=== PATIENT | female | born 1995 | race African-American/Black ===

== ENCOUNTER 2018-04-15 09:24 | Emergency (ER) | payer OTHER ==
[2018-04-15 09:30] VITALS: BP 138/81
[2018-04-15] MEDS ORDERED: IBUPROFEN 800 MG TABLET PO ONE (10:21)
--- NOTE | 2018-04-15 13:41 | ER Document Report ---
HPI - HPI Patient complains to provider of: Concern about breast abscess Onset: Other - 3 days Onset/Duration: Worse Quality of pain: Achy Pain Level: 3 Context: Patient presents complaining of right breast tenderness with erythema. Patient does report a previous history of abscess to this breast that required surgery in 2017. Patient denies any history of MRSA. Patient denies any personal or family history of breast cancer. Associated Symptoms: Other - Right breast tenderness. denies: Fever Exacerbated by: Denies Relieved by: Denies Similar symptoms previously: Yes Recently seen / treated by doctor: No - ROS ROS below otherwise negative: Yes Systems Reviewed and Negative: Yes All other systems reviewed and negative - CONSTITUTIONAL Constitutional: DENIES: Fever, Chills - GASTROINTESTINAL Gastrointestinal: DENIES: Nausea - REPRODUCTIVE Reproductive: DENIES: : - DERM Skin Color: Erythema Past Medical History - General Information source: Patient - Social History Smoking Status: Current Some Day Smoker Chew tobacco use (# tins/day): No Smoking Education Provided: Yes Frequency of alcohol use: None Drug Abuse: None Occupation: Retail Family History: Reviewed & Not Pertinent Patient has suicidal ideation: No Patient has homicidal ideation: No Pulmonary Medical History: Denies: Hx Asthma Neurological Medical History: Reports: Hx Migraine Endocrine Medical History: Denies: Hx Diabetes Mellitus Type 2 Renal/ Medical History: Denies: Hx Peritoneal Dialysis GI Medical History: Denies: Hx Gastroesophageal Reflux Disease Musculoskeletal Medical History: Reports Hx Arthritis Skin Medical History: Reports Hx Cellulitis Past Surgical History: Reports: Other - Breast abscess surgery - Immunizations Immunizations up to date: Yes Hx Diphtheria, Pertussis, Tetanus Vaccination: Yes Vertical Provider Document - CONSTITUTIONAL Agree With Documented VS: Yes Exam Limitations: No Limitations General Appearance: WD/WN, No Apparent Distress - INFECTION CONTROL TRAVEL OUTSIDE OF THE [place] IN LAST 30 DAYS: No - HEENT HEENT: Atraumatic, Normocephalic - NECK Neck: Normal Inspection, Supple - RESPIRATORY Respiratory: Breath Sounds Normal, No Respiratory Distress - CARDIOVASCULAR Cardiovascular: Regular Rate, Regular Rhythm, No Murmur - BACK Back: Normal Inspection - MUSCULOSKELETAL/EXTREMETIES Musculoskeletal/Extremeties: BASHIR VEGA - NEURO Level of Consciousness: Awake, Alert, Appropriate Motor/Sensory: No Motor Deficit - DERM Integumentary: Warm, Dry Notes: Erythema noted to the right breast at the 4 o'clock position. Patient exquisitely tender with palpation Course - Re-evaluation Re-evalutation: 04/15/18 13:40 Dr. Stock called with verbal results of ultrasound demonstrating a 4 x 3 x 2 cm abscess to the right breast. Consulted with Dr. Sandhu who agrees to examine patient. 04/15/18 14:03 Dr. Sandhu evaluated patient and advises placing her on clindamycin. Recommends having patient return tomorrow to be reevaluated by a surgeon. - Vital Signs Vital signs: Temp Pulse Resp BP Pulse Ox 98.9 F 109 H 18 138/81 H 98 04/15/18 09:28 04/15/18 09:28 04/15/18 09:28 04/15/18 09:28 04/15/18 09:28 - Diagnostic Test Radiology reviewed: Reports reviewed Discharge - Discharge Clinical Impression: Abscess of right breast Condition: Stable Disposition: HOME, SELF-CARE Instructions: Abscess ([facility]), Clindamycin ([facility]), Oral Narcotic Medication ([facility]) Additional Instructions: Return immediately for any new or worsening symptoms Followup with your primary care provider, call tomorrow to make a followup appointment Return tomorrow for a reevaluation by the surgeon. Do not eat anything after midnight and prior to arrival tomorrow. Prescriptions: Clindamycin HCl [Cleocin Hcl] 300 mg PO QID #28 capsule Oxycodone HCl/Acetaminophen [Percocet 5-325 mg Tablet] 1 tab PO ASDIR PRN #15 tablet PRN Reason: Forms: Smoking Cessation Education, Return to Work Referrals: KAILASH SANDHU MD [[facility]] - Follow up as needed PER OLIVARES MD [ACTIVE STAFF] - Follow up tomorrow
--- NOTE | 2018-04-15 13:48 | RADIOLOGY REPORT (SQ) ---
EXAM DESCRIPTION: U/S BREAST UNILATERAL LIMITED COMPLETED DATE/TIME: 04/15/2018 12:38 pm REASON FOR STUDY: r breast, ?abscess COMPARISON: None TECHNIQUE: Static and Realtime grayscale interrogation of the right breast in the area of clinical c oncern, lower outer quadrant. Selected color doppler/spectral images saved to PACS. LIMITATIONS: None. FINDINGS: About 4 cm from the nipple, right breast lower outer quadrant at the 4 o'clock position, a subcutaneous abscess is present, just deep to the skin. This measures 4.6 x 2.2 x 3.6 cm in size. This report was discussed with Maryuri Candelario in the emergency room IMPRESSION: Right breast lower outer quadrant abscess just deep to the skin surface, 4.6 x 2.2 x 3. 6 cm size. This is at the 4 o'clock position about 4 cm from the nipple. BIRAD: 1 Negative. RECOMMENDATION: RECOMMENDED FOLLOW-UP: Follow-up as clinically indicated. COMMENT: The [employer] ([employer]) has developed recommendations for screening MRI of the breasts in certain patient populations, to be used in conjunction with mammography. Breast MRI s urveillance may be appropriate for women with more than 20% lifetime risk of developing breast cancer as determined by genetic testing, significant family history of the disease, or history of mantle r adiation for Hodgkins Disease. ACR Practice Guidelines 2008. TECHNICAL DOCUMENTATION: FINDING NUMBER: (1) ASSESSMENT: (1) JOB ID: [id number] [employer]- All Rights Reserved Reading location - IP/workstation name: [email or web address]
[2018-04-15] MEDS ORDERED: CLINDAMYCIN HCL 150 MG CAPSULE PO ONE (14:02)
--- NOTE | 2018-04-15 17:21 | CONSULTATION REPORT E ---
Consultation Report NAME: SERVANDO DSOUZA : 1995 AGE: 22Y DATE: 04/15/2018 TO: KAILASH SANDHU M.D. FROM: Arturo SARGENT, Requesting Physician CHIEF COMPLAINT: Right breast pains. HISTORY OF PRESENT ILLNESS: This 22-year-old female complained of pains along the right breast about 3 days ago. This got worse last night and more swollen and erythematous. She had a history of previous I and D of the right breast on the same site a year ago. PAST MEDICAL HISTORY: History of I and D on the right breast, June 27, 2017, by Dr. Hewitt. REVIEW OF SYSTEMS: As in HPI. No other complaints other than the right breast pains. No headaches. No cough, chest pains, abdominal pains, or leg pains. No fever or chills. No constipation or diarrhea. FAMILY HISTORY: Mother has diabetes. SOCIAL HISTORY: The patient does not smoke or drink. PHYSICAL EXAMINATION: GENERAL: Well-developed, well-nourished, 32-year-old -[place] female, alert and oriented, complaining of pain along the right breast. HEENT: Neck is supple. No thyromegaly. LUNGS: Clear. HEART: Regular sinus rhythm. BREASTS: The right breast has some redness just above the area of I and D in the right lower inner quadrant area. There is induration roughly about 4 cm x 3 cm that is erythematous and tender. ABDOMEN: Soft, nontender. EXTREMITIES: No edema. IMPRESSION: Right breast recurrent abscess. PLAN: The patient refused to be admitted to be placed on IV antibiotics. The abscess area is still quite firm and without any fluctuation, and it would not be appropriate to have an I and D at this time. At any rate, the patient decided to go home with her sister. I told her I will give her p.o. antibiotics and to come back tomorrow morning and not eat anything from midnight tonight. This will be re-evaluated by the surgeon metal extrusion supervisor, Dr. Rosario. DICTATING PHYSICIAN: KAILASH SANDHU M.D. [id number] PHY#: [id number] ID: [id number] JOB#: [id number] ACCT: [id number] cc:KAILASH SANDHU M.D. > SUNIL
== END 2018-04-15 14:43 | disposition home or self-care (01) ==
LOC: ER 09:24
DX: N61.1 Abscess of the breast and nipple (principal); F17.200 Nicotine dependence, unspecified, uncomplicated; Z98.890 Other specified postprocedural states
CPT/HCPCS: 76642; 99284

== ENCOUNTER 2018-04-16 07:55 | Emergency (ER) | payer OTHER ==
[2018-04-16 08:02] VITALS: BP 134/76
--- NOTE | 2018-04-16 08:15 | ER Document Report ---
HPI - HPI Patient complains to provider of: Breast abscess Onset: Other - 4 days Onset/Duration: Persistent Quality of pain: Achy Pain Level: 4 Context: Patient presents for recheck of breast abscess to her right breast. Patient was evaluated here yesterday and advised to return today after remaining n.p.o. after midnight. Patient denies any fever. Patient does report taking her antibiotics as prescribed yesterday. Associated Symptoms: Other - Right breast abscess. denies: Fever Exacerbated by: Denies Relieved by: Denies Similar symptoms previously: Yes Recently seen / treated by doctor: Yes - ROS ROS below otherwise negative: Yes Systems Reviewed and Negative: Yes All other systems reviewed and negative - CONSTITUTIONAL Constitutional: DENIES: Fever - REPRODUCTIVE Reproductive: DENIES: : - DERM Skin Color: Erythema Past Medical History - General Information source: Patient - Social History Smoking Status: Current Every Day Smoker Smoking Education Provided: Yes Frequency of alcohol use: None Drug Abuse: None Occupation: Retail Family History: Reviewed & Not Pertinent Pulmonary Medical History: Denies: Hx Asthma Neurological Medical History: Reports: Hx Migraine Endocrine Medical History: Denies: Hx Diabetes Mellitus Type 2 Renal/ Medical History: Denies: Hx Peritoneal Dialysis GI Medical History: Denies: Hx Gastroesophageal Reflux Disease Musculoskeletal Medical History: Reports Hx Arthritis Skin Medical History: Reports Hx Cellulitis Past Surgical History: Reports: Other - Breast abscess surgery - Immunizations Immunizations up to date: Yes Hx Diphtheria, Pertussis, Tetanus Vaccination: Yes Vertical Provider Document - CONSTITUTIONAL Agree With Documented VS: Yes Exam Limitations: No Limitations General Appearance: WD/WN, No Apparent Distress - INFECTION CONTROL TRAVEL OUTSIDE OF THE [place] IN LAST 30 DAYS: No - HEENT HEENT: Atraumatic, Normocephalic - NECK Neck: Normal Inspection, Supple - RESPIRATORY Respiratory: Breath Sounds Normal, No Respiratory Distress - CARDIOVASCULAR Cardiovascular: Regular Rate, Regular Rhythm - BACK Back: Normal Inspection - MUSCULOSKELETAL/EXTREMETIES Musculoskeletal/Extremeties: MAEW - NEURO Level of Consciousness: Awake, Alert, Appropriate Motor/Sensory: No Motor Deficit - DERM Integumentary: Warm, Dry, Abscess - Right breast abscess to the 4 o'clock position. Area of erythema and induration seems to have expanded since her visit yesterday. Course - Re-evaluation Re-evalutation: 04/16/18 08:[address] Rosario who agrees to evaluate patient. 04/16/18 08:24 Dr. Rosario to bedside for examination 04/16/18 09:00 I&D to be performed per surgeon. Recommends outpatient follow-up with his office on Wednesday for recheck - Vital Signs Vital signs: Temp Pulse Resp BP Pulse Ox 98.9 F 95 16 134/76 H 100 04/16/18 08:01 04/16/18 08:01 04/16/18 08:01 04/16/18 08:01 04/16/18 08:01 Discharge - Discharge Clinical Impression: Abscess of right breast Condition: Good Disposition: HOME, SELF-CARE Instructions: Abscess ([facility]), Post Incision and Drainage Additional Instructions: Return immediately for any new or worsening symptoms Followup with Dr Rosario for a recheck in the office on Wednesday, call for an appointment time Forms: Return to Work Referrals: PER ROSARIO MD [ACTIVE STAFF] - 04/18/18
[2018-04-16] MEDS ORDERED: LIDOCAINE 1%/EPINEPHRINE INJ 20 ML VIAL INJ ONE (08:39)
--- NOTE | 2018-04-16 10:55 | Operative Report ---
Nonrecallable Operative Report DATE OF SURGERY: 04/16/18 PREOPERATIVE DIAGNOSIS: 4 cm right breast abscess. POSTOPERATIVE DIAGNOSIS: Same as above OPERATION: Incision and drainage of a right breast abscess. SURGEON: PER OLIVARES TISSUE REMOVED OR ALTERED: Wound culture COMPLICATIONS: None apparent ESTIMATED BLOOD LOSS: Minimal PROCEDURE: Drains/implants: 4 x 4 gauze packing. Procedure in detail: After informed consent was obtained, the patient was laid in the semi-upright position in the emergency department. The area of the right medial breast was prepped and draped in a normal sterile fashion. 1% lidocaine was infiltrated around the area of the abscess. The abscess was then incised with a 15 blade scalpel. A large amount of purulent material was expressed. The wound was irrigated and cleaned. Wound cultures were taken. Wound was then packed with a 4 x 4 gauze, a dressing was fashioned, and the procedure was concluded. All sponge, instrument, and needle counts were correct. Condition: Stable. Recommendation: Continue antibiotics until the course is complete. Follow-up in my office this coming Wednesday.
== END 2018-04-16 09:31 | disposition home or self-care (01) ==
LOC: ER 07:55
DX: N61.1 Abscess of the breast and nipple (principal); F17.200 Nicotine dependence, unspecified, uncomplicated
CPT/HCPCS: 87070; 87205; 87075; 87077; 87186; 10060; J3490

== ENCOUNTER 2018-06-19 08:14 | Emergency (ER) | payer OTHER ==
[2018-06-19] MEDS ORDERED: LIDOCAINE 1% INJ-PF (10 MG/ML) 30 ML SDV INJ ONE (08:36)
--- NOTE | 2018-06-19 08:39 | ER Document Report ---
HPI - HPI Pain Level: 4 Notes: Patient is a 23-year-old female with a history of abscesses requiring incision and drainage who presents to the ED complaining of new onset abscess to the right inferior breast area which she has had cut twice before. Patient states that she has associated pain and swelling in that area. Denies any drug allergies. She has not noticed any red streaks or purulent discharge. Denies any history of MRSA or IV drug use. Denies any headache, fever, URI, sore throat, chest pain, palpitations, syncope, cough, shortness of breath, wheeze, dyspnea, abdominal pain, nausea/vomiting/diarrhea, urinary retention, dysuria, hematuria. - ROS Systems Reviewed and Negative: Yes All other systems reviewed and negative - REPRODUCTIVE Reproductive: DENIES: : Past Medical History - Social History Smoking Status: Unknown if Ever Smoked Family History: Reviewed & Not Pertinent Patient has suicidal ideation: No Patient has homicidal ideation: No Pulmonary Medical History: Denies: Hx Asthma Neurological Medical History: Reports: Hx Migraine Endocrine Medical History: Denies: Hx Diabetes Mellitus Type 2 Renal/ Medical History: Denies: Hx Peritoneal Dialysis GI Medical History: Denies: Hx Gastroesophageal Reflux Disease Musculoskeletal Medical History: Reports Hx Arthritis Skin Medical History: Reports Hx Cellulitis Past Surgical History: Reports: Hx Breast Surgery - RIGHT BREAST ABSCESS, Other - Breast abscess surgery - Immunizations Immunizations up to date: Yes Hx Diphtheria, Pertussis, Tetanus Vaccination: Yes Vertical Provider Document - CONSTITUTIONAL Agree With Documented VS: Yes Notes: PHYSICAL EXAMINATION: Accompanied by female nurse GENERAL: Well-appearing, well-nourished and in no acute distress. Chest: there is a 6x4cm indurated area that is tender to palpation. + mild erythema noted w/o any streaks or active purulence. LUNGS: Breath sounds clear to auscultation bilaterally and equal. No wheezes rales or rhonchi. HEART: Regular rate and rhythm without murmurs, rubs, gallops. Musculoskeletal: FROM to passive/active. Strength 5+/5. Extremities: No cyanosis, clubbing, or edema b/l. Peripheral pulses 2+. Capillary refill less than 3 seconds. NEUROLOGICAL: Normal speech, normal gait. PSYCH: Normal mood, normal affect. SKIN: see above. - INFECTION CONTROL TRAVEL OUTSIDE OF THE [place] IN LAST 30 DAYS: No Course - Re-evaluation Re-evalutation: 06/19/18 08:43 US was performed which did show abscess that needs I&D. Set-up ordered. 06/19/18 09:19 Patient is an afebrile, well-hydrated, 23-year-old female who presents to the ED with an abscess to her right inferior breast tissue. Vitals are acceptable without any significant tachycardia, tachypnea, or hypoxia. PE is otherwise unremarkable. Incision and drainage was performed successfully without any complications and packing was placed. Wound culture obtained. Patient tolerated procedure well. Wound dressing was placed and wound instructions reviewed. I will send her home with a prescription for Keflex and Bactrim. No further labs or imaging warranted at this time. Conservative measures for symptoms. Recheck with your PCM/ED in 2-3 days. Return to the ED with any worsening/concerning symptoms otherwise as reviewed in discharge. Patient is in agreement. - Vital Signs Vital signs: Temp Pulse Resp BP Pulse Ox 98.4 F 90 139/78 H 100 06/19/18 08:19 06/19/18 08:19 06/19/18 08:19 06/19/18 08:19 Procedures - Incision and Drainage Right Breast Time completed: 09:15 Type: Simple Anesthetic type: 1% Lidocaine mL's of anesthetic: 6 Blade size: 11 I&D procedure: Iodoform packing placed, Sterile dressing applied, Other - Chlorhexidine/saline Incision Method: Incision made by scalpel Amount/type of drainage: Abundant purulent Discharge - Discharge Clinical Impression: Abscess Condition: Stable Disposition: HOME, SELF-CARE Instructions: Cephalexin ([facility]), Trimethoprim-Sulfa ([facility]), Post Incision and Drainage, Abscess ([facility]) Additional Instructions: Do not shower or bathe for 24 hours. After 24 hours she may shower but no submersion of the wound under water. Keep the original dressing on the wound for 24 hours unless the drainage soaks through. Change the dressing daily thereafter and use a small amount of triple antibiotic ointment over the open wound. Return to the ED and/or your PCM in 2-3 days for recheck and continue direction for wound packing. Monitor for any signs of worsening pain or redness , streaks, and/or fever. Return to the ED if noticing any of the above symptoms or as needed. Take medications as directed. Prescriptions: Cephalexin Monohydrate [Keflex 500 mg Capsule] 500 mg PO TID #30 capsule Sulfamethoxazole/Trimethoprim [Bactrim Ds Tablet] 1 each PO BID #20 tablet Forms: Elevated Blood Pressure Referrals: PER OLIVARES MD [ACTIVE STAFF] - Follow up as needed
[2018-06-19 09:43] VITALS: BP 134/77
== END 2018-06-19 09:44 | disposition home or self-care (01) ==
LOC: ER 08:14
PROC: 0H9TXZZ (ICD-10-PCS; principal; 2018-06-19)
DX: N61.1 Abscess of the breast and nipple (principal)
CPT/HCPCS: 99283; 87070; 87205; 87077; 87186; 10060; A6266; J3490

== ENCOUNTER 2018-06-22 09:18 | Emergency (ER) | payer OTHER ==
[2018-06-22 09:25] VITALS: BP 138/67
--- NOTE | 2018-06-22 10:26 | ER Document Report ---
ED Wound - General Chief Complaint: Wound Recheck Stated Complaint: WOUND RECHECK Time Seen by Provider: 06/22/18 10:08 Mode of Arrival: Ambulatory Information source: Patient Notes: Patient is a 23-year-old female comes emergency room for a recheck on her wound her I&D that was performed on 06/19/2018. The areas and the right medial breast lower portion. The area was I&D and a large amount of pus was taken out on the . There was iodoform packing placed and patient has returned for to be removed in check. She states it is been doing well since the I&D the size is decreased and the pain is decreased. She changes the dressing twice a day. She cleans the area of first before reapplying the packing. She cleans it with Hibiclens. She also states that she gets these occasionally over the past year 3 x 2 of which have required surgical intervention from a surgeon. She states that that always comes back in about the same place. This time she came in early and it appears that it is working to correct the problem. TRAVEL OUTSIDE OF THE [place] IN LAST 30 DAYS: No - HPI Patient complains to provider of: Other - Wound recheck Occurred: Other - 06/19/2018 Onset/Duration: Gradual, Better Quality of pain: Achy, Burning, Pressure Severity: Mild Pain Level: 2 Skin Temperature: Warm Skin Color: Erythema Sensations intact: Yes Associated Symptoms: Drainage - Related Data Allergies/Adverse Reactions: No Known Allergies Allergy (Verified 06/22/18 09:22) Past Medical History - General Information source: Patient - Social History Smoking Status: Current Some Day Smoker Cigarette use (# per day): Yes Chew tobacco use (# tins/day): No Smoking Education Provided: Yes Frequency of alcohol use: None Drug Abuse: None Family History: Reviewed & Not Pertinent Patient has suicidal ideation: No Patient has homicidal ideation: No Pulmonary Medical History: Denies: Hx Asthma Neurological Medical History: Reports: Hx Migraine Endocrine Medical History: Denies: Hx Diabetes Mellitus Type 2 Renal/ Medical History: Denies: Hx Peritoneal Dialysis GI Medical History: Denies: Hx Gastroesophageal Reflux Disease Musculoskeletal Medical History: Reports Hx Arthritis Skin Medical History: Reports Hx Cellulitis Past Surgical History: Reports: Hx Breast Surgery - RIGHT BREAST ABSCESS, Other - Breast abscess surgery - Immunizations Immunizations up to date: Yes Hx Diphtheria, Pertussis, Tetanus Vaccination: Yes Review of Systems - Review of Systems Constitutional: No symptoms reported EENT: No symptoms reported Cardiovascular: No symptoms reported Respiratory: No symptoms reported Gastrointestinal: No symptoms reported Genitourinary: No symptoms reported Female Genitourinary: No symptoms reported Musculoskeletal: No symptoms reported Skin: Lesions, Other - Abscess Hematologic/Lymphatic: No symptoms reported Neurological/Psychological: No symptoms reported -: Yes All other systems reviewed and negative Physical Exam - Vital signs Vitals: Temp Pulse Resp BP Pulse Ox 98.3 F 63 16 138/67 H 100 06/22/18 09:24 06/22/18 09:24 06/22/18 09:24 06/22/18 09:24 06/22/18 09:24 Interpretation: Hypertensive - Notes Notes: PHYSICAL EXAMINATION: GENERAL: Well-appearing, well-nourished and in no acute distress. HEAD: Atraumatic, normocephalic. EYES: Pupils equal round and reactive to light, extraocular movements intact, conjunctiva are normal. ENT: Nares patent, oropharynx clear without exudates. Moist mucous membranes. NECK: Normal range of motion, supple without lymphadenopathy LUNGS: Breath sounds clear to auscultation bilaterally and equal. No wheezes rales or rhonchi. HEART: Regular rate and rhythm without murmurs ABDOMEN: Soft, nontender, nondistended abdomen. No guarding, no rebound. No masses appreciated. Female : deferred Musculoskeletal: Normal range of motion, no pitting or edema. No cyanosis. NEUROLOGICAL: Cranial nerves grossly intact. Normal speech, normal gait. Normal sensory, motor exams PSYCH: Normal mood, normal affect. SKIN: Examination of patient's wound area which is located on the medial aspect of the right breast lower portion about the 4 o'clock position which would make it also underneath the breast itself. Shows an area that is still somewhat indurated there is iodoform packing which is still in place and some drainage which is apparent on the 4 x 4's were used to cover the iodoform. The iodoform was pulled with no problem whatsoever probably about 12 inches and it was loaded with exudate. I then applied pressure to the sides and was able to express about 6 more mL's of bloody whitish discharge. The area where the iodoform was left open an area of entrance after exploring somewhat I felt that it was necessary to repack. The surrounding tissues are looking more healthy and from comparison of note the size has decreased significantly. Course - Re-evaluation Re-evalutation: 06/22/18 10:26 As far as a procedure note goes I have removed the iodoform which was approximately 12 inches I applied pressure to express more from the whole which I did I clean the area again I used a new bottle of iodoform quarter inch I packed with approximately the same amount in length with no anesthesia patient handled this application very well. And then a top dressing was applied without any incident. I have informed patient to continue cleaning as she has been not to be submerged in any type of a bath or whirlpool aburto or stream or ocean. Only take a shower and let the water run across it. She is to continue with the antibiotics. I have requested that she return in 24-48 hours with preference on 48 hours for us to remove it one more time. I felt it highly necessary to keep it open and draining. Patient is expressed understanding and will return in 48 hours or shoulder if it appears there is anything not healing appropriately. - Vital Signs Vital signs: Temp Pulse Resp BP Pulse Ox 98.3 F 63 16 138/67 H 100 06/22/18 09:24 06/22/18 09:24 06/22/18 09:24 06/22/18 09:24 06/22/18 09:24 Discharge - Discharge Clinical Impression: Abscess of right breast, Right breast wound recheck Disposition: HOME, SELF-CARE Instructions: Abscess ([facility]), Cephalexin ([facility]), Trimethoprim-Sulfa ([facility]), Post Incision and Drainage Additional Instructions: As we discussed I am sorry we had to repack the area but I think it will benefit you the best in the long run. We needed to keep it open and draining. Continue with warm moist compresses as we discussed and continue with all your antibiotics. I would like to see you return in approximately 48 hours if possible if for any reason you cannot in [id number] would be fine but the longer term would be best. Also know that if any reason it is apparent that is not healing correctly or your increasing the amount of drainage return to ER for recheck. Forms: Return to Work
== END 2018-06-22 10:32 | disposition home or self-care (01) ==
LOC: ER 09:18
DX: N61.1 Abscess of the breast and nipple (principal); F17.210 Nicotine dependence, cigarettes, uncomplicated
CPT/HCPCS: 99282; A6266

== ENCOUNTER 2018-08-03 09:57 | Emergency (ER) | payer MEDICAID, OTHER ==
--- NOTE | 2018-08-03 11:00 | ER Document Report ---
ED General - General Chief Complaint: Abscess Stated Complaint: BREAST ABSCESS Time Seen by Provider: 08/03/18 10:50 Notes: 20-year-old female with a history of breast abscesses presents to the ER with a right breast abscess she has been developing for the last 4 days. States it is always in the same location. It is on the middle portion of her right breast. She denies any fever chills complains of a burning aching pain for which she rates as moderate in her right breast is worse with movement and touching the area. She denies any nausea vomiting denies chest pain shortness of breath denies abdominal pain. TRAVEL OUTSIDE OF THE [place] IN LAST 30 DAYS: No - Related Data Allergies/Adverse Reactions: No Known Allergies Allergy (Verified 06/22/18 09:22) Past Medical History - Social History Smoking Status: Unknown if Ever Smoked Family History: Reviewed & Not Pertinent Pulmonary Medical History: Denies: Hx Asthma Neurological Medical History: Reports: Hx Migraine Endocrine Medical History: Denies: Hx Diabetes Mellitus Type 2 Renal/ Medical History: Denies: Hx Peritoneal Dialysis GI Medical History: Denies: Hx Gastroesophageal Reflux Disease Musculoskeletal Medical History: Reports Hx Arthritis Skin Medical History: Reports Hx Cellulitis Past Surgical History: Reports: Hx Breast Surgery - RIGHT BREAST ABSCESS, Other - Breast abscess surgery - Immunizations Immunizations up to date: Yes Hx Diphtheria, Pertussis, Tetanus Vaccination: Yes Review of Systems - Review of Systems Constitutional: denies: Chills, Fever Cardiovascular: denies: Chest pain Respiratory: Other - Right chest wall abscess/right breast Gastrointestinal: denies: Nausea, Vomiting -: Yes All other systems reviewed and negative Physical Exam - Vital signs Vitals: Temp Pulse Resp BP Pulse Ox 98.8 F 85 16 140/79 H 100 08/03/18 10:04 08/03/18 10:04 08/03/18 10:04 08/03/18 10:04 08/03/18 10:04 - Notes Notes: GENERAL_APPEARANCE: well_nourished, alert, cooperative VITALS: reviewed, see vital signs table. HEAD: no_swelling\tenderness on the head. EYES: conjunctiva_clear. NOSE: no_nasal_discharge. MOUTH: (-)decreased moisture. THROAT: no_throat_inflammation, no_airway_obstruction. no_lymphadenopathy NECK: supple, no_neck_tenderness, (-)thyromegaly. BACK: no_back_tenderness. CHEST_WALL: 2-3 cm abscess in the right medial portion of the breast. There is areas of scarring where this has been incised and drained for over the exact same location. There is small amount of fluctuance noted SKIN: warm, dry, good_color, no_rash. The chest wall for abscess details MENTAL_STATUS: speech_clear, oriented_X_3, normal_affect, responds_ appropriately to questions. Course - Re-evaluation Re-evalutation: 08/03/18 11:00 Small breast abscess right breast she has been incised and drained here multiple times is easy to demarcate the abscess no ultrasound will be needed. Patient will be incised and drained placed on Keflex and Bactrim for home. 08/03/18 12:00 Patient tolerated incision and drainage well. We placed on Bactrim and Keflex for home. Wound was cultured. She has seen Dr. Hewitt in the past for revision of this area. She gets abscesses in the same spot I explained to her that she may need a revision at this time so that all the scar tissue and areas for recurrent infection are completely taken out. - Vital Signs Vital signs: Temp Pulse Resp BP Pulse Ox 98.8 F 85 16 140/79 H 100 08/03/18 10:04 08/03/18 10:04 08/03/18 10:04 08/03/18 10:04 08/03/18 10:04 Procedures - Incision and Drainage Right Medial Chest Time completed: 11:59 Anesthetic type: 1% Lidocaine Blade size: 11 I&D procedure: Betadine prep applied, Chlorprep applied Incision Method: Incision made by scalpel Amount/type of drainage: 10cc Notes: 08/03/18 11:59 Right medial breast abscess 2 cm incision was made 10 cc of pus was expressed area was squeezed culture was done iodoform packing was placed no complications Discharge - Discharge Clinical Impression: Breast abscess Condition: Good Disposition: HOME, SELF-CARE Instructions: Abscess ([facility]) Additional Instructions: REMove the packing in 2-3 days you do not need to return no additional packing will need to be placed Prescriptions: Cephalexin Monohydrate [Keflex 500 mg Capsule] 500 mg PO QID #40 capsule Sulfamethoxazole/Trimethoprim [Bactrim Ds Tablet] 1 each PO Q12H #20 tablet
[2018-08-03 12:28] VITALS: BP 128/77
== END 2018-08-03 12:08 | disposition home or self-care (01) ==
LOC: ER 09:57
DX: N61.1 Abscess of the breast and nipple (principal); E11.9 Type 2 diabetes mellitus without complications
CPT/HCPCS: 99283; 87070; 87205; 87075; 87077; 87186; 10060; A6266

== ENCOUNTER 2018-08-22 06:20 | Emergency (ER) | payer OTHER ==
[2018-08-22] MEDS ORDERED: LIDOCAINE 1% INJ-PF (10 MG/ML) 30 ML SDV INJ ONE (07:12)
[2018-08-22] MEDS ORDERED: ONDANSETRON 4 MG TAB.RAPDIS PO ONE (07:34)
--- NOTE | 2018-08-22 07:39 | ER Document Report ---
ED General - General Chief Complaint: Abscess Stated Complaint: BREAST PROBLEM Time Seen by Provider: 08/22/18 07:02 TRAVEL OUTSIDE OF THE [place] IN LAST 30 DAYS: No - HPI Notes: Patient is a 23-year-old female who presents to the ED for 2 complaints. First complaint is an abscess to her right medial breast area that she has presented to the ED for multiple times for incision and drainage. Patient states that it has been there for about 5-7 days and has associated pain. She has not noticed any streaks or purulence. Patient states that she also woke up this morning and had noted nausea, vomiting, and diarrhea. Patient states that she has discomfort to her upper abdomen that does not radiate. Patient states that after retching a few times she did notice scant blood thereafter, but nothing since. No other surgical history to her abdomen. Denies drug allergies. She has not been eating or drinking much this morning. Denies any headache, fever, URI, sore throat, chest pain, palpitations, syncope, cough, shortness of breath, wheeze, dyspnea, urinary retention, dysuria, hematuria, back pain, or rash. - Related Data Allergies/Adverse Reactions: No Known Allergies Allergy (Verified 06/22/18 09:22) Past Medical History - Social History Smoking Status: Former Smoker Frequency of alcohol use: None Drug Abuse: None Family History: Reviewed & Not Pertinent Patient has suicidal ideation: No Patient has homicidal ideation: No Pulmonary Medical History: Denies: Hx Asthma Neurological Medical History: Reports: Hx Migraine Endocrine Medical History: Denies: Hx Diabetes Mellitus Type 2 Renal/ Medical History: Denies: Hx Peritoneal Dialysis GI Medical History: Denies: Hx Gastroesophageal Reflux Disease Musculoskeletal Medical History: Reports Hx Arthritis Skin Medical History: Reports Hx Cellulitis Past Surgical History: Reports: Hx Breast Surgery - RIGHT BREAST ABSCESS, Other - Breast abscess surgery - Immunizations Immunizations up to date: Yes Hx Diphtheria, Pertussis, Tetanus Vaccination: Yes Review of Systems - Review of Systems -: Yes All other systems reviewed and negative Physical Exam - Vital signs Vitals: Temp Pulse Resp BP Pulse Ox 97.4 F 53 L 16 148/72 H 100 08/22/18 06:25 08/22/18 06:25 08/22/18 06:25 08/22/18 06:25 08/22/18 06:25 - Notes Notes: PHYSICAL EXAMINATION: accompanied by female nurse, [email or web address] GENERAL: Well-appearing, well-nourished and in no acute distress. HEAD: Atraumatic, normocephalic. EYES: Pupils equal round and reactive to light, extraocular movements intact, sclera anicteric, conjunctiva are normal. ENT: Nares patent and without discharge. oropharynx clear without exudates. No tonsilar hypertrophy or erythema. Moist mucous membranes. NECK: Normal range of motion, supple without lymphadenopathy Chest: There is a 2x2.5cm fluctuant, tender, abscess to the rt medial inferior breast area. Other I&D scars are noted in this area. No streaks or active purulence. Minimal induration. LUNGS: Breath sounds clear to auscultation bilaterally and equal. No wheezes rales or rhonchi. HEART: Regular rate and rhythm without murmurs, rubs, gallops. ABDOMEN: Soft, nondistended abdomen. No guarding, no rebound. No masses appre ciated. Normal bowel sounds present. No CVA tenderness bilaterally. + mild epigastric tenderness, correlates with pain described. Cantu neg. No lower abd tenderness b/l. Musculoskeletal: FROM to passive/active. Strength 5+/5. Extremities: No cyanosis, clubbing, or edema b/l. Peripheral pulses 2+. Capillary refill less than 3 seconds. NEUROLOGICAL: Normal speech, normal gait. PSYCH: Normal mood, normal affect. SKIN: see above. Course - Re-evaluation Re-evalutation: 08/22/18 09:16 Patient is an afebrile, well-hydrated, 23-year-old female who presents to the ED with a right recurrent breast abscess requiring incision and drainage as well as epigastric abdominal pain, suspect possible viral illness. Vitals are acceptable without any significant tachycardia, tachypnea, or hypoxia. PE is otherwise unremarkable. CBC, CMP, lipase, hCG, chest x-ray were unremarkable for any acute pathology. Patient's abdomen is now soft and nontender. Patient states that her abdominal discomfort has greatly improved. She is feeling overall better. Incision and drainage was performed successfully without any complications and wound culture was obtained. Packing was placed and wound dressing applied. Wound instructions reviewed. No further labs or imaging warranted at this time. Low suspicion/risk for acute appendicitis, bowel obstruction, acute cholecystitis, acute cholangitis, perforated diverticulitis, incarcerated hernia, pancreatitis, perforated ulcer, peritonitis, sepsis, pelvic inflammatory disease, ectopic , tubo-ovarian abscess, ovarian torsion, or other systemic emergent condition at this time. Patient is aware that her condition can change from initial presentation and she needs to monitor symptoms closely and seek medical attention if any acute changes. I did review the importance of following up with a general surgeon due to this issue being recurrent. I will send her home with a prescription for Keflex and Bactrim. Conservative measures otherwise for symptoms. Recheck with your PCM in 2-3 days. Return to the ED with any worsening/concerning symptoms otherwise as rev iewed in discharge. Patient is in agreement. - Vital Signs Vital signs: Temp Pulse Resp BP Pulse Ox 97.4 F 53 L 16 148/72 H 100 08/22/18 06:25 08/22/18 06:25 08/22/18 06:25 08/22/18 06:25 08/22/18 06:25 - Laboratory Result Diagrams: 08/22/18 07:30 08/22/18 07:30 Laboratory results interpreted by me: 08/22/18 08/22/18 07:30 07:30 MCH 26.7 L Chloride 111 H Glucose 128 H Total Protein 8.3 H Procedures - Incision and Drainage Right Chest Time completed: 09:15 - Patient tolerated procedure well without complications. Type: Simple Anesthetic type: 1% Lidocaine mL's of anesthetic: 5 Blade size: 11 I&D procedure: Iodoform packing placed, Sterile dressing applied, Other - chlorhexadine/saline Incision Method: Incision made by scalpel Amount/type of drainage: moderate purulent Discharge - Discharge Clinical Impression: Abscess of right breast, Upper abdominal pain Condition: Stable Disposition: HOME, SELF-CARE Instructions: Abdominal Pain ([facility]), Abscess ([facility]), Cephalexin ([facility]), Post Incision and Drainage, Trimethoprim-Sulfa ([facility]) Additional Instructions: Do not shower or bathe for 24 hours. After 24 hours you may shower but no submersion of the wound under water. Keep the original dressing on the wound for 24 hours unless the drainage soaks through. Change the dressing daily thereafter and use a small amount of triple antibiotic ointment over the open wound. See your PCM in 2-3 days for recheck and continue direction for wound packing. Monitor for any signs of worsening pain or redness, streaks, and/or fever. Return to the ED if noticing any of the above symptoms or as needed. Take medications as directed. Maintain adequate fluid and food intake [place] diet ([employer] Bananas, rice, apples, toast, etc Zofran as needed tylenol if needed Monitor for any worsening symptoms Make sure you are staying hydrated enough to urinate and have normal BM's Consider consult with Gastroenterology for ongoing/worsening symptoms Return to the ED with any worsening symptoms and/or development of fever, headache, chest pain, palpitations, syncope, shortness of breath, trouble breathing, abdominal pain, n/v/d, blood in stool/urine, weakness, or other worsening symptoms that are concerning to you. Prescriptions: Cephalexin Monohydrate [Keflex 500 mg Capsule] 500 mg PO TID #30 capsule Ondansetron [Zofran Odt 4 mg Tablet] 1 - 2 tab PO Q4H PRN #15 tab.rapdis PRN Reason: For Nausea/Vomiting Sulfamethoxazole/Trimethoprim [Bactrim Ds Tablet] 1 each PO BID #20 tablet Forms: Elevated Blood Pressure Referrals: PER OLIVARES MD [ACTIVE STAFF] - Follow up as needed
[2018-08-22 07:43] LABS: ABSOLUTE LYMPHOCYTES (AUTO) 1.3 10^3/uL (0.5-4.7); ABSOLUTE MONOCYTES (AUTO) 0.3 10^3/uL (0.1-1.4); ABSOLUTE NEUT (AUTO) 4.3 10^3/uL (1.7-8.2); BASOPHILS % (AUTO) 0.6 % (0-2); EOSINOPHILS % (AUTO) 0.8 % (0-6); HEMATOCRIT 37.8 % (36.0-47.0); HEMOGLOBIN 12.7 g/dL (12.0-15.5); LYMPHOCYTES % (AUTO) 21.9 % (13-45); MEAN CORPUSCULAR HEMOGLOBIN 26.7 pg (27.0-33.4); MEAN CORPUSCULAR HGB CONC 33.4 g/dL (32.0-36.0); MEAN CORPUSCULAR VOLUME 80 fl (80-97); MONOCYTES % (AUTO) 5.7 % (3-13); PLATELET COUNT 403 10^3/uL (150-450); RED BLOOD COUNT 4.73 10^6/uL (3.72-5.28); RED CELL DISTRIBUTION WIDTH 13.9 % (11.5-14.0); TOTAL CELLS COUNTED % (AUTO) 100 %
--- NOTE | 2018-08-22 07:45 | RADIOLOGY REPORT (SQ) ---
Chest single view on 08/22/2018 at 7:31 AM CLINICAL INDICATION: Epigastric pain COMPARISON: 10/02/2012 FINDINGS: The lungs are clear. There is mild elevation of the right hemidiaphragm. Cardiac, hilar and mediastinal contours are within normal limits. Pulmonary vascularity is within normal limits. No bony abnormality is noted. IMPRESSION: No active disease.
[2018-08-22 07:56] LABS: ALANINE AMINOTRANSFERASE 14 U/L (9-52); ALBUMIN 4.4 g/dL (3.5-5.0); ALKALINE PHOSPHATASE 67 U/L (38-126); ANION GAP 8 (5-19); ASPARTATE AMINO TRANSFERASE 28 U/L (14-36); BILIRUBIN,DIRECT 0.2 mg/dL (0.0-0.4); BILIRUBIN,TOTAL 0.3 mg/dL (0.2-1.3); BLOOD UREA NITROGEN 12 mg/dL (7-20); CALCIUM 9.5 mg/dL (8.4-10.2); CARBON DIOXIDE 26 mmol/L (22-30); CHLORIDE 111 mmol/L (98-107); GLUCOSE 128 mg/dL (75-110); LIPASE 70.5 U/L (23-300); POTASSIUM 3.7 mmol/L (3.6-5.0); TOTAL PROTEIN 8.3 g/dL (6.3-8.2)
[2018-08-22] MEDS ORDERED: LIDOCAINE 2% VISCOUS SOLN 20 ML UDCUP PO ONE (08:02)
[2018-08-22] MEDS ORDERED: MAG HYDROX/AL HYDROX/SIMETH SUSP 30 ML UDCUP PO ONE (08:02)
[2018-08-22] MEDS ORDERED: METOCLOPRAMIDE HCL ORAL SOLN 10 MG/10 ML UDCUP PO ONE (08:02)
[2018-08-22 10:03] VITALS: BP 134/46
== END 2018-08-22 10:10 | disposition home or self-care (01) ==
LOC: ER 06:20
PROC: 0H9TXZZ (ICD-10-PCS; principal; 2018-08-22)
DX: N61.1 Abscess of the breast and nipple (principal); R11.2 Nausea with vomiting, unspecified; R10.10 Upper abdominal pain, unspecified; R19.7 Diarrhea, unspecified; Z87.891 Personal history of nicotine dependence
CPT/HCPCS: 10060; 99283; 36415; 87070; 87205; 83690; 84703; 85025; 87075; 87077; 80053; 71045; A6266; S0119; J3490 ×2; 87186

== ENCOUNTER 2018-12-18 09:43 | Emergency (ER) | payer SELFPAY ==
--- NOTE | 2018-12-18 09:56 | ER Document Report ---
ED Medical Screen (RME) - General Chief Complaint: Abscess Stated Complaint: POSSIBLE ABSCESS Time Seen by Provider: 12/18/18 09:55 Mode of Arrival: Ambulatory Information source: Patient Notes: 23-year-old female presented to ED for a abscess to the right breast. She states she has had this abscess multiple times in the past. She states she usually has to get an I&D done in the it on antibiotics Bactrim and Keflex. She has a scar from multiple previous I&D's to the area. Patient is alert oriented respirations regular and unlabored speaking in full sentences walks with a even steady gait. TRAVEL OUTSIDE OF THE [place] IN LAST 30 DAYS: No - Related Data Allergies/Adverse Reactions: No Known Allergies Allergy (Verified 12/18/18 09:44) Past Medical History Pulmonary Medical History: Denies: Hx Asthma Neurological Medical History: Reports: Hx Migraine Endocrine Medical History: Denies: Hx Diabetes Mellitus Type 2 Renal/ Medical History: Denies: Hx Peritoneal Dialysis GI Medical History: Denies: Hx Gastroesophageal Reflux Disease Musculoskeltal Medical History: Reports Hx Arthritis Skin Medical History: Reports Hx Cellulitis Past Surgical History: Reports: Hx Breast Surgery - RIGHT BREAST ABSCESS, Other - Breast abscess surgery - Immunizations Immunizations up to date: Yes Hx Diphtheria, Pertussis, Tetanus Vaccination: Yes History of Influenza Vaccine for 05/2017 - 10/2017 Season: No Physical Exam - Vital signs Vitals: Temp Pulse Resp BP Pulse Ox 98.4 F 96 16 138/82 H 99 12/18/18 09:45 12/18/18 09:45 12/18/18 09:45 12/18/18 09:45 12/18/18 09:45 Course - Vital Signs Vital signs: Temp Pulse Resp BP Pulse Ox 98.4 F 96 16 138/82 H 99 12/18/18 09:45 12/18/18 09:45 12/18/18 09:45 12/18/18 09:45 12/18/18 09:45
[2018-12-18] MEDS ORDERED: LIDOCAINE 1% INJ-PF (10 MG/ML) 30 ML SDV INJ ONE (10:06)
--- NOTE | 2018-12-18 10:10 | ER Document Report ---
HPI - HPI Time Seen by Provider: 12/18/18 09:55 Pain Level: 2 Notes: Patient is a 23-year-old female with a history of abscesses requiring incision and drainage who presents to the ED complaining of new onset abscess to the right inferior breast area x3d which she has had cut multiple times before and 2 other times by myself personally. Patient states that she has associated pain and swelling in that area. Denies any drug allergies. She has not noticed any red streaks or purulent discharge. Denies any history of MRSA or IV drug use. Denies any headache, fever, URI, sore throat, chest pain, palpitations, syncope, cough, shortness of breath, wheeze, dyspnea, abdominal pain, nausea/vomiting/diarrhea, urinary retention, dysuria, hematuria. - ROS Systems Reviewed and Negative: Yes All other systems reviewed and negative - REPRODUCTIVE Reproductive: DENIES: : - DERM Skin Color: Normal Past Medical History - General Information source: Patient - Social History Smoking Status: Never Smoker Chew tobacco use (# tins/day): No Frequency of alcohol use: None Drug Abuse: None Family History: Reviewed & Not Pertinent Patient has suicidal ideation: No Patient has homicidal ideation: No Pulmonary Medical History: Denies: Hx Asthma Neurological Medical History: Reports: Hx Migraine Endocrine Medical History: Denies: Hx Diabetes Mellitus Type 2 Renal/ Medical History: Denies: Hx Peritoneal Dialysis GI Medical History: Denies: Hx Gastroesophageal Reflux Disease Musculoskeletal Medical History: Reports Hx Arthritis Skin Medical History: Reports Hx Cellulitis Past Surgical History: Reports: Hx Breast Surgery - RIGHT BREAST ABSCESS, Other - Breast abscess surgery - Immunizations Immunizations up to date: Yes Hx Diphtheria, Pertussis, Tetanus Vaccination: Yes Vertical Provider Document - CONSTITUTIONAL Agree With Documented VS: Yes Notes: PHYSICAL EXAMINATION: GENERAL: Well-appearing, well-nourished and in no acute distress. LUNGS: Breath sounds clear to auscultation bilaterally and equal. No wheezes rales or rhonchi. HEART: Regular rate and rhythm without murmurs, rubs, gallops. Musculoskeletal: FROM to passive/active. Strength 5+/5. Extremities: No cyanosis, clubbing, or edema b/l. Peripheral pulses 2+. Capillary refill less than 3 seconds. NEUROLOGICAL: Normal speech, normal gait. PSYCH: Normal mood, normal affect. SKIN: Rt inferior breast: there is a fluctuant, erythemic, tender 3cm area noted with mild induration surrounding. No streaks or active purulence. - INFECTION CONTROL TRAVEL OUTSIDE OF THE [place] IN LAST 30 DAYS: No Course - Re-evaluation Re-evalutation: 12/18/18 Patient is an afebrile, well-hydrated, 23-year-old female who presents to the ED with an abscess to her right inferior breast tissue. Vitals are acceptable without any significant tachycardia, tachypnea, or hypoxia. PE is otherwise unremarkable. Incision and drainage was performed successfully without any complications and packing was placed. Wound culture obtained. Patient tolerated procedure well. Wound dressing was placed and wound instructions reviewed. I will send her home with a prescription for Keflex and Bactrim. No further labs or imaging warranted at this time. Conservative measures for symptoms. Recheck with your PCM/ED in 2-3 days. Return to the ED with any worsening/concerning symptoms otherwise as reviewed in discharge. Patient is in agreement. - Vital Signs Vital signs: Temp Pulse Resp BP Pulse Ox 98.4 F 96 16 138/82 H 99 12/18/18 09:45 12/18/18 09:45 12/18/18 09:45 12/18/18 09:45 12/18/18 09:45 Procedures - Incision and Drainage Right Chest Time completed: 10:20 - Patient tolerated procedure well without any complications Type: Simple Anesthetic type: 1% Lidocaine mL's of anesthetic: 6 Blade size: 11 I&D procedure: Iodoform packing placed, Sterile dressing applied, Other - chlorhexadine/saline Incision Method: Incision made by scalpel Amount/type of drainage: moderate/abundant purulent Discharge - Discharge Clinical Impression: Abscess of right breast Condition: Stable Disposition: HOME, SELF-CARE Instructions: Cephalexin ([facility]), Trimethoprim-Sulfa ([facility]), Abscess ([facility]), Post Incision and Drainage Additional Instructions: Do not shower or bathe for 24 hours. After 24 hours you may shower but no submersion of the wound under water. Keep the original dressing on the wound for 24 hours unless the drainage soaks through. Change the dressing daily thereafter and use a small amount of triple antibiotic ointment over the open wound. See your PCM in 2-3 days for recheck and continue direction for wound packing. Monitor for any signs of worsening pain or redness, streaks, and/or fever. Return to the ED if noticing any of the above symptoms or as needed. Take medications as directed. Prescriptions: Cephalexin Monohydrate [Keflex 500 mg Capsule] 500 mg PO TID #30 capsule Sulfamethoxazole/Trimethoprim [Bactrim Ds Tablet] 1 each PO BID #20 tablet Forms: Elevated Blood Pressure Referrals: PER OLIVARES MD [ACTIVE STAFF] - Follow up as needed
[2018-12-18 11:18] VITALS: BP 146/81
== END 2018-12-18 11:09 | disposition home or self-care (01) ==
LOC: ER 09:43
DX: N61.1 Abscess of the breast and nipple (principal)
CPT/HCPCS: 99283; 87070; 87205; 87075; 87077; 10060; J3490

== ENCOUNTER 2019-10-18 19:44 | Observation (INO) | payer SELFPAY ==
[2019-10-18] MEDS ORDERED: ONDANSETRON 4 MG TAB.RAPDIS PO ONE (20:47)
[2019-10-18] MEDS ORDERED: DICYCLOMINE HCL INJ 20 MG/2 ML AMPULE IM ONE (20:47)
--- NOTE | 2019-10-18 20:49 | ER Document Report ---
ED Medical Screen (RME) - General Chief Complaint: Abdominal Pain Stated Complaint: ABDOMINAL PAIN/VOMITING Time Seen by Provider: 10/18/19 20:44 Notes: 24 y/o female presents for n/v and RUQ pain since last night. States constant. Unable to keep anything down. Associated constipation (still passing flatus). Abd soft, tenderness to RUQ. I have greeted and performed a rapid initial assessment of this patient. A comprehensive ED assessment and evaluation of the patient, analysis of test results and completion of the medical decision making process with be conducted by additional ED providers. TRAVEL OUTSIDE OF THE [place] IN LAST 30 DAYS: No - Related Data Allergies/Adverse Reactions: No Known Allergies Allergy (Verified 12/18/18 09:44) Past Medical History Pulmonary Medical History: Denies: Hx Asthma Neurological Medical History: Reports: Hx Migraine Endocrine Medical History: Denies: Hx Diabetes Mellitus Type 2 Renal/ Medical History: Denies: Hx Peritoneal Dialysis GI Medical History: Denies: Hx Gastroesophageal Reflux Disease Musculoskeltal Medical History: Reports Hx Arthritis Skin Medical History: Reports Hx Cellulitis Past Surgical History: Reports: Hx Breast Surgery - RIGHT BREAST ABSCESS, Other - Breast abscess surgery - Immunizations Immunizations up to date: Yes Hx Diphtheria, Pertussis, Tetanus Vaccination: Yes Physical Exam - Vital signs Vitals: Temp Pulse Resp BP Pulse Ox 98.4 F 59 L 16 140/82 H 100 10/18/19 20:10 10/18/19 20:10 10/18/19 20:10 10/18/19 20:10 10/18/19 20:10 Course - Vital Signs Vital signs: Temp Pulse Resp BP Pulse Ox 98.4 F 59 L 16 140/82 H 100 10/18/19 20:10 10/18/19 20:10 10/18/19 20:10 10/18/19 20:10 10/18/19 20:10
[2019-10-18 21:25] LABS: ABSOLUTE LYMPHOCYTES (AUTO) 1.6 10^3/uL (0.5-4.7); ABSOLUTE MONOCYTES (AUTO) 1.2 10^3/uL (0.1-1.4); ABSOLUTE NEUT (AUTO) 11.6 10^3/uL (1.7-8.2); BASOPHILS % (AUTO) 0.2 % (0-2); EOSINOPHILS % (AUTO) 0.1 % (0-6); HEMATOCRIT 42.7 % (36.0-47.0); HEMOGLOBIN 14.3 g/dL (12.0-15.5); LYMPHOCYTES % (AUTO) 10.9 % (13-45); MEAN CORPUSCULAR HEMOGLOBIN 27.3 pg (27.0-33.4); MEAN CORPUSCULAR HGB CONC 33.5 g/dL (32.0-36.0); MEAN CORPUSCULAR VOLUME 82 fl (80-97); MONOCYTES % (AUTO) 8.4 % (3-13); PLATELET COUNT 428 10^3/uL (150-450); RED BLOOD COUNT 5.23 10^6/uL (3.72-5.28); RED CELL DISTRIBUTION WIDTH 13.6 % (11.5-14.0); SEGMENTED NEUTROPHILS % (AUTO) 80.4 % (42-78); TOTAL CELLS COUNTED % (AUTO) 100 %; WHITE BLOOD COUNT 14.5 10^3/uL (4.0-10.5)
[2019-10-18 21:40] LABS: ALBUMIN 4.6 g/dL (3.5-5.0); ALKALINE PHOSPHATASE 72 U/L (38-126); ANION GAP 10 (5-19); ASPARTATE AMINO TRANSFERASE 30 U/L (14-36); BILIRUBIN,TOTAL 0.4 mg/dL (0.2-1.3); BLOOD UREA NITROGEN 14 mg/dL (7-20); CARBON DIOXIDE 27 mmol/L (22-30); CHLORIDE 105 mmol/L (98-107); GLUCOSE 110 mg/dL (75-110); POTASSIUM 4.2 mmol/L (3.6-5.0); TOTAL PROTEIN 8.1 g/dL (6.3-8.2)
[2019-10-18 21:48] LABS: APPEARANCE,URINE SLIGHTLY-CLOUDY; BILIRUBIN,URINE NEGATIVE (NEGATIVE); COLOR,URINE YELLOW; GLUCOSE, URINE NEGATIVE (NEGATIVE); KETONES,URINE TRACE mg/dL (NEGATIVE); PROTEIN,URINE 30 mg/dL (NEGATIVE); URINE SPECIFIC GRAVITY 1.029; UROBILINOGEN,URINE NEGATIVE mg/dL (<2.0)
--- NOTE | 2019-10-18 22:40 | RADIOLOGY REPORT (SQ) ---
EXAM DESCRIPTION: US ABDOMEN DOPPLER LIMITED COMPLETED DATE/TME: 10/18/2019 20:47 CLINICAL HISTORY: 24 years, Female, RUQ pain, nausea/vomiting COMPARISON: None. TECHNIQUE: Limited right upper quadrant ultrasound LIMITATIONS: None. FINDINGS: Echogenic appearance to the liver consistent with fatty infiltrative change. Pancreas not well seen due to bowel gas. Visualized abdominal aorta, inferior vena cava are unremarkable. The gallbladder is somewhat contracted however appears filled with sludge and shadowing stones. Subjective gallbladder wall thickening at 3.6 cm. No pericholecystic fluid. The patient had pain with palpation over the right upper quadrant. CBD measures 2.4 mm in diameter. No ascites. The right kidney measures 12 cm in length. Nonobstructing right renal calculus measuring 7 mm. IMPRESSION: Fatty infiltrative change to the liver. Contracted gallbladder. Sludge/stones in the gallbladder lumen. No pericholecystic fluid. Pain with palpation over the right upper quadrant. Nonobstructing right renal calculus copyright 2010 [employer]- All Rights Reserved
[2019-10-18] MEDS ORDERED: NORMAL SALINE 1000 ML 1,000 ML IV ONE (23:38)
[2019-10-18] MEDS ORDERED: HYDROMORPHONE HCL INJ/PF 2 MG/ML AMPULE IV ONE (23:39)
[2019-10-18] MEDS ORDERED: ONDANSETRON HCL INJ/PF 4 MG/2 ML SDV IV ONE (23:39)
--- NOTE | 2019-10-19 00:03 | ER Document Report ---
ED GI/ - General Chief Complaint: Abdominal Pain Stated Complaint: ABDOMINAL PAIN/VOMITING Time Seen by Provider: 10/18/19 20:44 Notes: Patient is a 24-year-old female who presents to the emergency department with a chief complaint of nausea, vomiting, and right upper quadrant abdominal pain. Symptoms started yesterday. Patient states that she cannot keep anything down. Patient has history of diabetes and abscesses in the past. TRAVEL OUTSIDE OF THE [place] IN LAST 30 DAYS: No - Related Data Allergies/Adverse Reactions: No Known Allergies Allergy (Verified 10/19/19 08:51) Past Medical History - General Information source: Patient - Social History Smoking Status: Unknown if Ever Smoked Family History: Reviewed & Not Pertinent Pulmonary Medical History: Denies: Hx Asthma Neurological Medical History: Reports: Hx Migraine Endocrine Medical History: Denies: Hx Diabetes Mellitus Type 2 Renal/ Medical History: Denies: Hx Peritoneal Dialysis GI Medical History: Denies: Hx Gastroesophageal Reflux Disease Musculoskeletal Medical History: Reports Hx Arthritis Skin Medical History: Reports Hx Cellulitis Past Surgical History: Reports: Hx Breast Surgery - RIGHT BREAST ABSCESS, Other - Breast abscess surgery - Immunizations Immunizations up to date: Yes Hx Diphtheria, Pertussis, Tetanus Vaccination: Yes Review of Systems - Review of Systems Notes: REVIEW OF SYSTEMS: CONSTITUTIONAL : Denies recent illness. Denies recent unintentional weight loss. Denies fever, chills, or sweats. EENT: Denies eye, ear, throat, or mouth pain, discharge, or symptoms. Denies nasal or sinus congestion. CARDIOVASCULAR: Denies chest pain. RESPIRATORY: Denies shortness of breath, cough, congestion, difficulty breathing, or wheezing. GASTROINTESTINAL: See HPI. GENITOURINARY: Denies difficulty urinating, burning, blood in urine, urgency or frequency. MUSCULOSKELETAL: Denies neck and back pain. Denies joint pain or swelling. SKIN: Denies rash, itchiness, or lesions HEMATOLOGIC : Denies easy bruising or bleeding. LYMPHATIC: Denies swollen, painful, enlarged glands. NEUROLOGICAL: Denies no numbness or tingling denies weakness. Denies headache. Denies altered mental status. Denies alteration in speech. PSYCHIATRIC: Denies stress, anxiety, alteration in sleep patterns, or depression. All other systems reviewed and negative. Physical Exam - Vital signs Vitals: Temp Pulse Resp BP Pulse Ox 98.4 F 59 L 16 140/82 H 100 10/18/19 20:10 10/18/19 20:10 10/18/19 20:10 10/18/19 20:10 10/18/19 20:10 - Notes Notes: PHYSICAL EXAMINATION: GENERAL: Appears well, healthy, well-nourished, no acute distress. HEAD: Normocephalic, atraumatic. EYES: PERRL, conjunctiva normal, all extraocular movements intact, sclera nonicteric ENT: Moist mucous membranes. NECK: Supple, no noticeable swelling, redness, rash. Normal range of motion. LUNGS: Equal breath sounds bilaterally and clear to auscultation. No wheezes rales or rhonchi. CARDIOVASCULAR: S1-S2, regular rate, regular rhythm. Radial pulses 2+, normal. ABDOMEN: Normoactive bowel sounds. Soft, very tender right upper quadrant abdomen, no rebound tenderness, and no masses palpated. EXTREMITIES: Normal strength and range of motion, no pitting or edema. No cyanosis. NEUROLOGICAL: Moves all extremities upon command. Strength 5/5 in all extremities. PSYCH: Normal mood, normal affect. SKIN: Warm, dry. No rash, lesions, ulcerations noted. Normal skin turgor. Course - Re-evaluation Re-evalutation: 10/18/19 23:24 Hematology shows a leukocytosis of 14,500 with a left shift. Chemistries are unremarkable. Serum hCG is negative. Lipase is normal. Urinalysis shows a moderate amount of blood. This could be due to dehydration. Patient has sludge in her gallbladder. 10/19/19 00:13 Patient is opting to have a cholecystectomy. Spoke with Dr. Rosario, the surgeon conference services manager. - Vital Signs Vital signs: Temp Pulse Resp BP Pulse Ox 97.7 F 78 16 118/61 100 10/19/19 08:00 10/19/19 08:00 10/19/19 08:00 10/19/19 08:00 10/19/19 08:00 - Laboratory Result Diagrams: 10/18/19 21:05 10/18/19 21:05 Laboratory results interpreted by me: 10/18/19 10/18/19 20:57 21:05 WBC 14.5 H Lymph % (Auto) 10.9 L Absolute Neuts (auto) 11.6 H Seg Neutrophils % 80.4 H Urine Protein 30 H Urine Ketones TRACE H Urine Blood MODERATE H Urine Ascorbic Acid 40 H Discharge - Discharge Clinical Impression: Gallbladder sludge, Right upper quadrant abdominal pain Nausea and vomiting Qualifiers: Vomiting type: unspecified Vomiting Intractability: unspecified Qualified Code(s): R11.2 - Nausea with vomiting, unspecified Condition: Stable Disposition: ADMITTED INPATIENT Admitting Provider: Surgicalist Unit Admitted: Surgical Floor
[2019-10-19] MEDS ORDERED: MORPHINE SULFATE 10 MG/ML INJ IV PRN ×2 (00:14→14:35)
[2019-10-19] MEDS ORDERED: ONDANSETRON HCL INJ/PF 4 MG/2 ML SDV IV PRN (00:14)
[2019-10-19] MEDS ORDERED: PIPERACILLIN/TAZOBACTAM 3.375 GM VIAL IV PRN (00:38)
[2019-10-19] MEDS: PIPERACILLIN SODIUM/TAZOBACTAM 3.375 GM in NORMAL SALINE 100 ML IV SCH ×3 (01:13→11:11)
[2019-10-19] MEDS: DEXTROSE 5%-LACTATED RINGERS 1,000 ML IV PRN ×2 (02:01→17:25)
[2019-10-19] MEDS ORDERED: INFLUENZA QUAD (6MOS+) 2019-20 VAC 0.5 ML SYR IM ONE (03:55)
--- NOTE | 2019-10-19 06:40 | PDOC H&P ---
History of Present Illness Admission Date/PCP: 10/19/19 00:37 Patient complains of: Right upper quadrant pain, nausea, vomiting History of Present Illness: SERVANDO DSOUZA is a 24 year old female with an 8-hour history of right upper quadrant pain, nausea, and vomiting. It began after eating [employer]. Patient reports sharp, stabbing right upper quadrant pain that is unrelenting. She rates it 9 out of 10. It radiates to her back. She does have accompanied nausea. She denies hematochezia, melena, hematemesis, chest pain, shortness of breath, dizziness, orthostasis, headache, fatigue, malaise, blurry vision. Nothing makes her pain better or worse. Past Medical History Pulmonary Medical History: Denies: Asthma Neurological Medical History: Reports: Migraine Endocrine Medical History: Denies: Diabetes Mellitus Type 2 GI Medical History: Denies: Gastroesophageal Reflux Disease Musculoskeltal Medical History: Reports: Arthritis Past Surgical History Past Surgical History: Reports: Other - Breast abscess surgery Social History Smoking Status: Current Some Day Smoker Electronic Cigarette use?: No Number of Years Smokin Last Time Smoked: t-1 Frequency of Alcohol Use: Social Hx Recreational Drug Use: No Drugs: None Hx Prescription Drug Abuse: No Family History Family History: Reviewed & Not Pertinent Parental Family History Reviewed: Yes Children Family History Reviewed: Yes Sibling(s) Family History Reviewed.: Yes Medication/Allergy Home Medications: Hydrocodone/Acetaminophen [[place] 7.5-325 mg Tablet] 1 tab PO Q6HP PRN 06/27/17 Sulfamethoxazole/Trimethoprim [Sulfamethoxazole-Tmp Ds Tablet] 1 tab PO Q12 06/27/17 Clindamycin HCl [Cleocin Hcl] 300 mg PO QID #28 capsule 04/15/18 Oxycodone HCl/Acetaminophen [Percocet 5-325 mg Tablet] 1 tab PO ASDIR PRN #15 tablet 04/15/18 Cephalexin Monohydrate [Keflex 500 mg Capsule] 500 mg PO TID #30 capsule 06/19/18 Sulfamethoxazole/Trimethoprim [Bactrim Ds Tablet] 1 each PO BID #20 tablet 06/19/18 Cephalexin Monohydrate [Keflex 500 mg Capsule] 500 mg PO Q6H 5 Days #20 capsule 06/24/18 Fluconazole [Diflucan] 150 mg PO ONCE PRN #1 tablet 06/24/18 Sulfamethoxazole/Trimethoprim [Bactrim Ds Tablet] 1 each PO BID 5 Days #10 tablet 06/24/18 Cephalexin Monohydrate [Keflex 500 mg Capsule] 500 mg PO QID #40 capsule 08/03/18 Sulfamethoxazole/Trimethoprim [Bactrim Ds Tablet] 1 each PO Q12H #20 tablet 08/03/18 Cephalexin Monohydrate [Keflex 500 mg Capsule] 500 mg PO TID #30 capsule 08/22/18 Ondansetron [Zofran Odt 4 mg Tablet] 1 - 2 tab PO Q4H PRN #15 tab.rapdis 08/22/18 Sulfamethoxazole/Trimethoprim [Bactrim Ds Tablet] 1 each PO BID #20 tablet 08/22/18 Cephalexin Monohydrate [Keflex 500 mg Capsule] 500 mg PO TID #30 capsule 12/18/18 Sulfamethoxazole/Trimethoprim [Bactrim Ds Tablet] 1 each PO BID #20 tablet Allergies/Adverse Reactions: No Known Allergies Allergy (Verified 12/18/18 09:44) Review of Systems Constitutional: ABSENT: anorexia, chills, fatigue Eyes: ABSENT: visual disturbances Ears: ABSENT: hearing changes Nose, Mouth, and Throat: ABSENT: mouth pain, sore throat Cardiovascular: ABSENT: chest pain Respiratory: ABSENT: cough Gastrointestinal: PRESENT: abdominal pain, nausea Genitourinary: ABSENT: dysuria Musculoskeletal: PRESENT: back pain - Right upper back Integumentary: ABSENT: pruritus, rash Neurological: ABSENT: confusion, convulsions, dizziness Psychiatric: ABSENT: anxiety, depression Endocrine: ABSENT: cold intolerance, heat intolerance Hematologic/Lymphatic: ABSENT: easy bleeding, easy bruising Physical Exam Vital Signs: Temp Pulse Resp BP Pulse Ox 97.9 F 64 18 113/60 100 10/19/19 06:32 10/19/19 06:32 10/19/19 06:32 10/19/19 06:32 10/19/19 06:32 Intake & Output 10/17/19 10/18/19 10/19/19 06:59 06:59 06:59 Intake Total 1100 Balance 1100 Weight 97.3 kg General appearance: PRESENT: cooperative, obese Head exam: PRESENT: atraumatic, normocephalic Eye exam: PRESENT: EOMI, PERRLA. ABSENT: scleral icterus Mouth exam: PRESENT: moist, neck supple Neck exam: ABSENT: meningismus, tenderness, thyromegaly, tracheal deviation Respiratory exam: PRESENT: unlabored. ABSENT: chest wall tenderness, tachypnea, wheezes Cardiovascular exam: ABSENT: tachycardia Pulses: PRESENT: normal radial pulses Vascular exam: PRESENT: normal capillary refill GI/Abdominal exam: PRESENT: Cantu's sign, soft, tenderness Rectal exam: PRESENT: deferred Extremities exam: ABSENT: clubbing Musculoskeletal exam: ABSENT: deformity Neurological exam: PRESENT: alert, awake, oriented to person, oriented to place, oriented to time, oriented to situation, CN II-XII grossly intact Psychiatric exam: ABSENT: agitated, anxious, depressed Focused psych exam: ABSENT: delusional Skin exam: ABSENT: cyanosis, erythema, jaundice Results Laboratory Results: 10/18/19 21:05 10/18/19 21:05 10/18/19 10/18/19 10/18/19 20:57 21:05 21:05 WBC 14.5 H RBC 5.23 Hgb 14.3 Hct 42.7 MCV 82 MCH 27.3 MCHC 33.5 RDW 13.6 Plt Count 428 Seg Neutrophils % 80.4 H Sodium 141.6 Potassium 4.2 Chloride 105 Carbon Dioxide 27 Anion Gap 10 BUN 14 Creatinine 1.11 Est GFR ( Amer) > 60 Glucose 110 Calcium 10.0 Total Bilirubin 0.4 AST 30 Alkaline Phosphatase 72 Total Protein 8.1 Albumin 4.6 Lipase 60.5 Serum HCG, Qual Urine Color YELLOW Urine Appearance SLIGHTLY-CLOUDY Urine pH 5.0 Ur Specific [place] 1.029 Urine Protein 30 H Urine Glucose (UA) NEGATIVE Urine Ketones TRACE H Urine Blood MODERATE H Urine RBC (Auto) 34 10/18/19 21:05 WBC RBC Hgb Hct MCV MCH MCHC RDW Plt Count Seg Neutrophils % Sodium Potassium Chloride Carbon Dioxide Anion Gap BUN Creatinine Est GFR ( Amer) Glucose Calcium Total Bilirubin AST Alkaline Phosphatase Total Protein Albumin Lipase Serum HCG, Qual NEGATIVE Urine Color Urine Appearance Urine pH Ur Specific [place] Urine Protein Urine Glucose (UA) Urine Ketones Urine Blood Urine RBC (Auto) Impressions: Abdomen Ultrasound 10/18/19 20:47 IMPRESSION: Fatty infiltrative change to the liver. Contracted gallbladder. Sludge/stones in the gallbladder lumen. No pericholecystic fluid. Pain with palpation over the right upper quadrant. Nonobstructing right renal calculus copyright 2010 [employer]- All Rights Reserved Assessment & Plan - Diagnosis (1) Acute cholecystitis Is this a current diagnosis for this admission?: Yes - Plan Summary Plan Summary: This is a 24-year-old female with right upper quadrant pain, gallbladder wall thickening, and fatty food intolerance. I believe she is experiencing acute cholecystitis. I have admitted the patient to hospital, and started her on antibiotics. Plan for surgical intervention in the near future. This has been discussed with the patient, and she is in agreement with treatment plan. Risks/benefits discussed, informed consent obtained, and all questions answered.
[2019-10-19] MEDS: KETOROLAC TROMETHAMINE INJ/PF 30 MG/1 ML SDV IV SCH ×3 (06:45→23:40)
--- NOTE | 2019-10-19 09:27 | PDOC PROGRESS REPORT ---
Subjective Progress Note for:: 10/19/19 Subjective:: Still hurting in the right upper quadrant but less so. Reason For Visit: CHOLECYSTITIS Physical Exam Vital Signs: Temp Pulse Resp BP Pulse Ox 97.7 F 78 16 118/61 100 10/19/19 08:00 10/19/19 08:00 10/19/19 08:00 10/19/19 08:00 10/19/19 08:00 Intake & Output 10/18/19 10/19/19 10/20/19 06:59 06:59 06:59 Intake Total 1100 Balance 1100 Weight 97.3 kg General appearance: PRESENT: no acute distress, cooperative Respiratory exam: PRESENT: clear to auscultation tamra Cardiovascular exam: PRESENT: RRR GI/Abdominal exam: PRESENT: other - Soft, nondistended, mild to right upper quadrant abdominal tenderness without peritoneal signs. Results Laboratory Results: 10/18/19 21:05 10/18/19 21:05 10/18/19 10/18/19 10/18/19 20:57 21:05 21:05 WBC 14.5 H RBC 5.23 Hgb 14.3 Hct 42.7 MCV 82 MCH 27.3 MCHC 33.5 RDW 13.6 Plt Count 428 Seg Neutrophils % 80.4 H Sodium 141.6 Potassium 4.2 Chloride 105 Carbon Dioxide 27 Anion Gap 10 BUN 14 Creatinine 1.11 Est GFR ( Amer) > 60 Glucose 110 Calcium 10.0 Total Bilirubin 0.4 AST 30 Alkaline Phosphatase 72 Total Protein 8.1 Albumin 4.6 Lipase 60.5 Serum HCG, Qual Urine Color YELLOW Urine Appearance SLIGHTLY-CLOUDY Urine pH 5.0 Ur Specific [place] 1.029 Urine Protein 30 H Urine Glucose (UA) NEGATIVE Urine Ketones TRACE H Urine Blood MODERATE H Urine RBC (Auto) 34 10/18/19 21:05 WBC RBC Hgb Hct MCV MCH MCHC RDW Plt Count Seg Neutrophils % Sodium Potassium Chloride Carbon Dioxide Anion Gap BUN Creatinine Est GFR ( Amer) Glucose Calcium Total Bilirubin AST Alkaline Phosphatase Total Protein Albumin Lipase Serum HCG, Qual NEGATIVE Urine Color Urine Appearance Urine pH Ur Specific [place] Urine Protein Urine Glucose (UA) Urine Ketones Urine Blood Urine RBC (Auto) Impressions: Abdomen Ultrasound 10/18/19 20:47 IMPRESSION: Fatty infiltrative change to the liver. Contracted gallbladder. Sludge/stones in the gallbladder lumen. No pericholecystic fluid. Pain with palpation over the right upper quadrant. Nonobstructing right renal calculus copyright 2010 [email or web address]- All Rights Reserved Assessment & Plan - Diagnosis (1) Acute cholecystitis Is this a current diagnosis for this admission?: Yes Plan: Plan laparoscopic cholecystectomy. I have discussed with the patient the risk and benefits of the surgery including risk of bile duct injury, intestinal injury, bleeding, infection, mistaken diagnosis, possibility of conversion to an open procedure, heart lung risk, postcholecystectomy diarrhea. Patient understands and agrees to proceed.
[2019-10-19] MEDS: FAMOTIDINE INJ/PF 20 MG/2 ML SDV IV SCH ×2 (09:56→23:39)
[2019-10-19] MEDS: ENOXAPARIN SODIUM INJ 40 MG/0.4 ML DISP.SYRIN SUBCUT SCH (10:01)
[2019-10-19] MEDS ORDERED: BUPIVACAINE HCL 0.25 % INJ/PF (2.5 MG/1 ML) 30 ML VIAL ONE (13:50)
[2019-10-19] MEDS ORDERED: FENTANYL CITRATE INJ/PF 250 MCG/5 ML AMPULE ONE (13:57)
[2019-10-19] MEDS ORDERED: HYDROMORPHONE HCL INJ/PF 2 MG/ML AMPULE ONE (13:57)
[2019-10-19] MEDS ORDERED: MIDAZOLAM 2 MG/2 ML INJ ONE (13:57)
[2019-10-19] MEDS ORDERED: PROPOFOL INJ 200 MG/20 ML VIAL IV ONE (13:57)
[2019-10-19] MEDS ORDERED: ROCURONIUM BROMIDE INJ 50 MG/5 ML VIAL IV ONE (14:03)
[2019-10-19] MEDS ORDERED: GLYCOPYRROLATE 1 MG/5 ML VIAL ONE (14:03)
[2019-10-19] MEDS ORDERED: SUCCINYLCHOLINE CHLORIDE INJ 200 MG/10 ML VIAL ONE (14:03)
[2019-10-19] MEDS ORDERED: ONDANSETRON HCL INJ/PF 4 MG/2 ML SDV ONE (14:03)
[2019-10-19] MEDS ORDERED: NEOSTIGMINE METHYLSULFATE 10 MG/10 ML VIAL ONE (14:03)
[2019-10-19] MEDS ORDERED: DEXAMETHASONE SOD PHOSPHATE INJ 4 MG/1 ML VIAL ONE (14:03)
[2019-10-19] MEDS ORDERED: MEPERIDINE HCL/PF INJ 25 MG/1 ML DISP.SYRIN IV PRN (14:35)
[2019-10-19] MEDS ORDERED: FENTANYL CITRATE INJ/PF 100 MCG/2 ML AMPUL IV PRN ×3 (14:35)
[2019-10-19] MEDS ORDERED: PROMETHAZINE HCL INJ 25 MG/1 ML VIAL IV PRN (14:35)
[2019-10-19] MEDS ORDERED: DIPHENHYDRAMINE HCL 50 MG/ML VIAL IV PRN (14:35)
[2019-10-19] MEDS ORDERED: BUPIVACAINE HCL 0.5%-EPI 1:200000 INJ/PF 30 ML VIAL INJ ONE (15:22)
--- NOTE | 2019-10-19 15:35 | Operative Report ---
Operative Report DATE OF SURGERY: 10/19/19 PREOPERATIVE DIAGNOSIS: Cholecystitis POSTOPERATIVE DIAGNOSIS: Cholelithiasis with chronic and acute cholecystitis OPERATION: Laparoscopic cholecystectomy SURGEON: CORETTA FORTUNE ANESTHESIA: GA TISSUE REMOVED OR ALTERED: Gallbladder COMPLICATIONS: None ESTIMATED BLOOD LOSS: Minimal INTRAOPERATIVE FINDINGS: Thickened wall gallbladder with multiple gallstones PROCEDURE: Informed consent was obtained. Patient was brought to the operating room placed operating table in supine position. After satisfactory induction of general anesthesia, patient's abdomen was prepped and draped in usual sterile fashion. A supraumbilical midline incision was made and dissection carried down to the fascia the peritoneal cavity entered without difficulty. [place] trocar was inserted. Pneumoperitoneum produced good patient toleration. 5 mm trocar was placed in the subxiphoid location.Two 5 mm trochars were placed in the right subcostal location. The gallbladder wall felt markedly thickened and gallbladder was filled with stones. The gallbladder was grasped and retracted cephalad over the dome of the liver. The infundibulum of the gallbladder was grasped retracted laterally and inferiorly thus exposing calot's triangle. There was fibrotic changes in close triangle making the dissection difficult. The cystic duct gallbladder junction was clearly identified. In this patient, the cystic artery laid lateral to the cystic duct. To make absolutely sure of the anatomy the distal portion of the gallbladder was mobilized off the liver bed. After I was certain of the anatomy, and the cystic duct was clipped and divided. Cystic artery was likewise taken. The gallbladder was taken off the gallbladder bed using the hook electrocautery technique. There was a vessel clearly going into the gallbladder wall about a third way up the gallbladder and this vessel was taken by clipping and dividing. The gallbladder was removed with an Endobag through the Bill[place] trocar site fascial defect. Operative field was irrigated and irrigant aspirated out. Irrigation fluid was perfectly clear at the end of the case. There was no bile spillage during the case and there was no stone spillage during the case. Hemostasis appeared excellent. All troc hars were removed under the direct vision a laparoscope to ensure hemostasis. The [place] trocar site fascial defect was closed with interrupted Vicryl sutures. All skin incisions were closed with subcuticular interrupted Monocryl sutures. Marcaine was injected at the port sites. Patient tolerated procedure well no apparent complications and was taken to the recovery area in stable condition.
[2019-10-19] MEDS ORDERED: KETOROLAC TROMETHAMINE INJ/PF 30 MG/1 ML SDV ONE (16:45)
[2019-10-19] MEDS ORDERED: FENTANYL CITRATE INJ/PF 100 MCG/2 ML AMPUL ONE (16:46)
--- NOTE | 2019-10-19 22:55 | PDOC PROGRESS REPORT ---
Subjective Progress Note for:: 10/19/19 Subjective:: Feels much better after surgery. Reason For Visit: CHOLECYSTITIS Physical Exam Vital Signs: Temp Pulse Resp BP Pulse Ox 97.7 F 56 L 16 128/60 H 100 10/19/19 21:04 10/19/19 21:04 10/19/19 21:04 10/19/19 21:04 10/19/19 21:04 Intake & Output 10/18/19 10/19/19 10/20/19 06:59 06:59 06:59 Intake Total 1100 2925 Output Total 15 Balance 1100 2910 Weight 97.3 kg General appearance: PRESENT: no acute distress, cooperative Respiratory exam: PRESENT: clear to auscultation tamra Cardiovascular exam: PRESENT: RRR GI/Abdominal exam: PRESENT: other - Soft, nondistended, minimal tenderness to palpation. Results Laboratory Results: 10/18/19 21:05 10/18/19 21:05 Impressions: Abdomen Ultrasound 10/18/19 20:47 IMPRESSION: Fatty infiltrative change to the liver. Contracted gallbladder. Sludge/stones in the gallbladder lumen. No pericholecystic fluid. Pain with palpation over the right upper quadrant. Nonobstructing right renal calculus copyright 2010 [employer]- All Rights Reserved Assessment & Plan - Diagnosis (1) Acute cholecystitis Is this a current diagnosis for this admission?: Yes Plan: Looks good after laparoscopic cholecystectomy. Will start diet in the morning and likely discharge patient home in the morning
[2019-10-20] MEDS: DEXTROSE 5%-LACTATED RINGERS 1,000 ML IV PRN (03:42)
[2019-10-20] MEDS: KETOROLAC TROMETHAMINE INJ/PF 30 MG/1 ML SDV IV SCH (06:34)
[2019-10-20 06:57] LABS: ABSOLUTE LYMPHOCYTES (AUTO) 1.9 10^3/uL (0.5-4.7); ABSOLUTE MONOCYTES (AUTO) 0.8 10^3/uL (0.1-1.4); ABSOLUTE NEUT (AUTO) 7.7 10^3/uL (1.7-8.2); BASOPHILS % (AUTO) 0.3 % (0-2); EOSINOPHILS % (AUTO) 0.2 % (0-6); HEMATOCRIT 35.4 % (36.0-47.0); LYMPHOCYTES % (AUTO) 17.9 % (13-45); MEAN CORPUSCULAR HEMOGLOBIN 27.2 pg (27.0-33.4); MEAN CORPUSCULAR HGB CONC 32.9 g/dL (32.0-36.0); MEAN CORPUSCULAR VOLUME 83 fl (80-97); MONOCYTES % (AUTO) 7.2 % (3-13); PLATELET COUNT 321 10^3/uL (150-450); RED BLOOD COUNT 4.29 10^6/uL (3.72-5.28); RED CELL DISTRIBUTION WIDTH 13.4 % (11.5-14.0); SEGMENTED NEUTROPHILS % (AUTO) 74.4 % (42-78); TOTAL CELLS COUNTED % (AUTO) 100 %; WHITE BLOOD COUNT 10.4 10^3/uL (4.0-10.5)
[2019-10-20 07:02] LABS: HEMOGLOBIN 11.6 g/dL (12.0-15.5)
[2019-10-20 07:12] LABS: ALBUMIN 3.5 g/dL (3.5-5.0); ALKALINE PHOSPHATASE 53 U/L (38-126); ANION GAP 6 (5-19); ASPARTATE AMINO TRANSFERASE 64 U/L (14-36); BILIRUBIN,DIRECT 0.2 mg/dL (0.0-0.4); BILIRUBIN,TOTAL 0.3 mg/dL (0.2-1.3); BLOOD UREA NITROGEN 12 mg/dL (7-20); CALCIUM 9.2 mg/dL (8.4-10.2); CARBON DIOXIDE 28 mmol/L (22-30); CHLORIDE 108 mmol/L (98-107); GLUCOSE 93 mg/dL (75-110); POTASSIUM 4.1 mmol/L (3.6-5.0); TOTAL PROTEIN 6.7 g/dL (6.3-8.2)
[2019-10-20] MEDS: FAMOTIDINE INJ/PF 20 MG/2 ML SDV IV SCH (09:42)
[2019-10-20] MEDS: ENOXAPARIN SODIUM INJ 40 MG/0.4 ML DISP.SYRIN SUBCUT SCH (09:42)
--- NOTE | 2019-10-20 11:10 | PDOC PROGRESS REPORT ---
Subjective Progress Note for:: 10/20/19 Subjective:: Feels well. Minimal right upper quadrant discomfort. Reason For Visit: CHOLECYSTITIS Physical Exam Vital Signs: Temp Pulse Resp BP Pulse Ox 97.5 F 61 14 131/77 H 100 10/20/19 08:41 10/20/19 08:41 10/20/19 08:41 10/20/19 08:41 10/20/19 08:41 Intake & Output 10/19/19 10/20/19 10/21/19 06:59 06:59 06:59 Intake Total 1100 3925 Output Total 15 Balance 1100 3910 Weight 97.3 kg General appearance: PRESENT: no acute distress, cooperative Respiratory exam: PRESENT: clear to auscultation tamra Cardiovascular exam: PRESENT: RRR GI/Abdominal exam: PRESENT: other - Soft, nondistended, very mild right upper quadrant tenderness. Results Laboratory Results: 10/20/19 06:15 10/20/19 06:15 10/20/19 10/20/19 06:15 06:15 WBC 10.4 RBC 4.29 Hgb 11.6 L D Hct 35.4 L MCV 83 MCH 27.2 MCHC 32.9 RDW 13.4 Plt Count 321 Seg Neutrophils % 74.4 Sodium 142.0 Potassium 4.1 Chloride 108 H Carbon Dioxide 28 Anion Gap 6 BUN 12 Creatinine 0.82 Est GFR ( Amer) > 60 Glucose 93 Calcium 9.2 Total Bilirubin 0.3 AST 64 H Alkaline Phosphatase 53 Total Protein 6.7 Albumin 3.5 Impressions: Abdomen Ultrasound 10/18/19 20:47 IMPRESSION: Fatty infiltrative change to the liver. Contracted gallbladder. Sludge/stones in the gallbladder lumen. No pericholecystic fluid. Pain with palpation over the right upper quadrant. Nonobstructing right renal calculus copyright 2011 [employer]- All Rights Reserved Assessment & Plan - Diagnosis (1) Acute cholecystitis Is this a current diagnosis for this admission?: Yes Plan: Looks good after laparoscopic cholecystectomy. Will discharge patient home today. Diminished hematocrit due to hemodilution. Patient hemodynamically stable. urinating well. BUN and creatinine decreased from admission.
--- NOTE | 2019-10-20 11:16 | PDOC DISCHARGE SUMMARY ---
General - Admit/Disc Date/PCP Admission Date/Primary Care Provider: 10/19/19 00:37 Discharge Date: 10/20/19 - Discharge Diagnosis Final Diagnosis: Acute and chronic cholecystitis with cholelithiasis. - Assessment Summary: Patient underwent laparoscopic cholecystectomy. She did well postoperatively. She was tolerating a diet was feeling much better at the time of discharge. Her hematocrit did diminish after the operation but she was hemodynamically stable with good urine output with diminished BUN and creatinine all consistent with hemodilution. Patient is being discharged home in good condition. She is encouraged to remain active at home but avoid strenuous activity. She may shower tomorrow. She is to follow-up at [facility] in 2 weeks. She is to call for any concerns or problems such as fever, increasing pain, nausea vomiting, jaundice, wound erythema. Patient may return to work next week. She is encouraged to follow a low-fat diet. No additional home medications. She may take Tylenol or Motrin for pain as directed. - Additional Information Resuscitation Status: Full Code Discharge Diet: As Tolerated - Try to stay on a low-fat diet. Discharge Activity: Activity As Tolerated - Stay active but avoid strenuous activity. May shower tomorrow. Home Medications: Aspirin/Acetaminophen/Caffeine [Excedrin Migraine Caplet] 1 tab PO DAILYP PRN 10/19/19 History of Present Illiness History of Present Illness: SERVANDO DSOUZA is a 24 year old female Physical Exam Vital Signs: Temp Pulse Resp BP Pulse Ox 97.5 F 61 14 131/77 H 100 10/20/19 08:41 10/20/19 08:41 10/20/19 08:41 10/20/19 08:41 10/20/19 08:41 Intake & Output 10/19/19 10/20/19 10/21/19 06:59 06:59 06:59 Intake Total 1100 3925 Output Total 15 Balance 1100 3910 Weight 97.3 kg Results Laboratory Results: WBC 10.4 10^3/uL (4.0-10.5) 10/20/19 06:15 RBC 4.29 10^6/uL (3.72-5.28) 10/20/19 06:15 Hgb 11.6 g/dL (12.0-15.5) L D 10/20/19 06:15 Hct 35.4 % (36.0-47.0) L 10/20/19 06:15 MCV 83 fl (80-97) 10/20/19 06:15 MCH 27.2 pg (27.0-33.4) 10/20/19 06:15 MCHC 32.9 g/dL (32.0-36.0) 10/20/19 06:15 RDW 13.4 % (11.5-14.0) 10/20/19 06:15 Plt Count 321 10^3/uL (150-450) 10/20/19 06:15 Lymph % (Auto) 17.9 % (13-45) 10/20/19 06:15 [place] % (Auto) 7.2 % (3-13) 10/20/19 06:15 Eos % (Auto) 0.2 % (0-6) 10/20/19 06:15 Baso % (Auto) 0.3 % (0-2) 10/20/19 06:15 Absolute Neuts (auto) 7.7 10^3/uL (1.7-8.2) 10/20/19 06:15 Absolute Lymphs (auto) 1.9 10^3/uL (0.5-4.7) 10/20/19 06:15 Absolute Monos (auto) 0.8 10^3/uL (0.1-1.4) 10/20/19 06:15 Absolute Eos (auto) 0.0 10^3/uL (0.0-0.6) 10/20/19 06:15 Absolute Basos (auto) 0.0 10^3/uL (0.0-0.2) 10/20/19 06:15 Seg Neutrophils % 74.4 % (42-78) 10/20/19 06:15 Sodium 142.0 mmol/L (137-145) 10/20/19 06:15 Potassium 4.1 mmol/L (3.6-5.0) 10/20/19 06:15 Chloride 108 mmol/L (98-107) H 10/20/19 06:15 Carbon Dioxide 28 mmol/L (22-30) 10/20/19 06:15 Anion Gap 6 (5-19) 10/20/19 06:15 BUN 12 mg/dL (7-20) 10/20/19 06:15 Creatinine 0.82 mg/dL (0.52-1.25) 10/20/19 06:15 Est GFR ( Amer) > 60 (>60) 10/20/19 06:15 Est GFR (MDRD) Non-Af > 60 (>60) 10/20/19 06:15 Glucose 93 mg/dL (75-110) 10/20/19 06:15 Calcium 9.2 mg/dL (8.4-10.2) 10/20/19 06:15 Total Bilirubin 0.3 mg/dL (0.2-1.3) 10/20/19 06:15 Direct Bilirubin 0.2 mg/dL (0.0-0.4) 10/20/19 06:15 Neonat Total Bilirubin Not Reportable 10/20/19 06:15 Neonat Direct Bilirubin Not Reportable 10/20/19 06:15 Neonat Indirect Bili Not Reportable 10/20/19 06:15 AST 64 U/L (14-36) H 10/20/19 06:15 ALT 26 U/L (<35) 10/20/19 06:15 Alkaline Phosphatase 53 U/L (38-126) 10/20/19 06:15 Total Protein 6.7 g/dL (6.3-8.2) 10/20/19 06:15 Albumin 3.5 g/dL (3.5-5.0) 10/20/19 06:15 Lipase 60.5 U/L (23-300) 10/18/19 21:05 Serum HCG, Qual NEGATIVE (NEGATIVE) 10/18/19 21:05 Urine Color YELLOW 10/18/19 20:57 Urine Appearance SLIGHTLY-CLOUDY 10/18/19 20:57 Urine pH 5.0 (5.0-9.0) 10/18/19 20:57 Ur Specific [place] 1.029 10/18/19 20:57 Urine Protein 30 mg/dL (NEGATIVE) H 10/18/19 20:57 Urine Glucose (UA) NEGATIVE mg/dL (NEGATIVE) 10/18/19 20:57 Urine Ketones TRACE mg/dL (NEGATIVE) H 10/18/19 20:57 Urine Blood MODERATE (NEGATIVE) H 10/18/19 20:57 Urine Nitrite (Reflex) NEGATIVE (NEGATIVE) 10/18/19 20:57 Urine Bilirubin NEGATIVE (NEGATIVE) 10/18/19 20:57 Urine Urobilinogen NEGATIVE mg/dL (<2.0) 10/18/19 20:57 Leukocyte Esterase Rfl NEGATIVE (NEGATIVE) 10/18/19 20:57 Urine RBC (Auto) 34 /HPF 10/18/19 20:57 Urine WBC (Reflex) 6 /HPF 10/18/19 20:57 Squamous Epi Cells Auto 2 /HPF 10/18/19 20:57 Urine Mucus (Auto) MOD /LPF 10/18/19 20:57 Urine Ascorbic Acid 40 (NEGATIVE) H 10/18/19 20:57 Impressions: Abdomen Ultrasound 10/18/19 20:47 IMPRESSION: Fatty infiltrative change to the liver. Contracted gallbladder. Sludge/stones in the gallbladder lumen. No pericholecystic fluid. Pain with palpation over the right upper quadrant. Nonobstructing right renal calculus copyright 2010 [employer]- All Rights Reserved
[2019-10-20 11:51] VITALS: BP 129/79
== END 2019-10-20 13:00 | disposition home or self-care (01) ==
LOC: ER 19:44 → EH 10-19 00:37 → 2N 10-19 02:20
PROVIDERS: ATTEND Surgery
DX: K80.10 Calculus of gallbladder with chronic cholecystitis without obstruction (principal); F17.210 Nicotine dependence, cigarettes, uncomplicated; E66.9 Obesity, unspecified; K76.0 Fatty (change of) liver, not elsewhere classified; N20.0 Calculus of kidney; R31.9 Hematuria, unspecified; K59.00 Constipation, unspecified; Z23 Encounter for immunization; Z32.02 Encounter for pregnancy test, result negative
CPT/HCPCS: 47562; 99285; 96361; 96375; 96365; 36415 ×2; 83690; 84703; 85025 ×2; 80053 ×2; 81001; 88304 ×2; 76705; 93976; 90686; 94799; J2250; J3010 ×2; J1885 ×2; J2270; J1650 ×2; J1170 ×2; J2405 ×2; J7121 ×2; J7050; J7030; J2704; S0028 ×2; J2543; G0378; J0330; J1100; J2710; J3490